=== PATIENT | male | born 1965 | race Hispanic/Latino ===

== ENCOUNTER → 2019-01-09 | Day surgery (SDC) | payer OTHER ==
[~2019-01-09] MED LIST: FENTANYL CITRATE/PF 100MCG/2 ML INJ ONE; FOLIC ACID1 MG PO; KALETRA 200-501 TAB PO; MIDAZOLAM HCL 2 MG/2 ML VIAL ONE; OR PHACO EYE KIT ONE; PREOP PHACO EYE KIT ONE; TRUVADA 200 MG1 EACH PO
--- OUTSIDE RECORDS SUMMARY | 2019-01-09 10:21 | XMS REPORT ---
Author Author [facility] Address Unknown Phone Unavailable Care Team Providers Care Sand Screener Operator Name Role Phone CHINMAY SHEARER Unavailable Unavailable Problems This patient has no known problems. Allergies, Adverse Reactions, Alerts This patient has no known allergies or adverse reactions. Medications This patient has no known medications. Results Test Description Test Time Test Comments Text Results Atomic Results Result Comments BONE MARROW EXAM 2018-01-04 10:46:00 Bone Marrow Pathology Report Case: [id number] Authorizing Provider: Chinmay Shearer MD Collected: Ordering Location: [facility] Radiology Main Received: 12/26/2017 0908 Pathologist: Oneil De La Paz MD Specimens: A) - Iliac Crest, Left B) - C) - This addendum is created to report the [facility] results for the Oncologic chromosomal study:There is no change to the original diagnosis.Oncologic Chromosomal Study is Normal.Please see attached scanned [facility] reports for details.Marie De La Paz MDAddendum electronically signed by Oneil De La Paz MD on 01/04/2018 at 10:46 AMBONE MARROW ASPIRATE, CLOT, AND DECALCIFIED BIOPSY:-EVALUATION LIMITED BY SUBOPTIMAL MARROW BIOPSY-BORDERLINE HYPOCELLULAR (35 %) MARROW FOR AGE DEMONSTRATED ON CLOT SECTION-TRILINEAGE HEMATOPOIESIS WITH ADEQUATE MATURATION -MILD MEGAKARYOCYTIC DYPOIESIS-NO EVIDENCE OF LYMPHOMA OR LEUKEMIA-NO EVIDENCE OF METASTATIC DISEASE OR MASS LESIONS-ONCOLOGIC CHROMOSOMAL STUDIES PENDING-SEE COMMENTPERIPHERAL BLOOD:-MILD LEUKOCYTOSIS WITH LEFT SHIFT AND FEW ATYPICAL LYMPHOCYTES Signing Pathologist Direct Phone Line: [phone] signed by Oneil De La Paz MD on 12/29/2017 at 3:53 PMBone marrow biopsy, aspirate, clot and peripheral blood evaluation was performed on samples obtained from a 52 year old man with history of thrombocytopenia of unknown duration. This evaluation is limited by suboptimal bone marrow biopsy. The bone marrow clot is borderline hypocellular(35%) for age. The M:E ratio is normal(2.1). There is no significant dyspoiesis in the erythroid or myeloid series. The megakaryocytes appear adequate to focally increased for cellularity with occasional dyspoietic forms. Given the mild degree in alteration of megakaryocytes, most likely secondary to a reactive condition, including autoimmune disease, infection, nutritional deficiency or medication/toxin effect. Less likely is the possibility of MDS. However, since the degree of morphologic dyspoiesis is not overt this diagnosis would require further corroborating evidence and a corresponding clinical history. Oncologic chromosomal analysis is pending for further evaluation and the results will be reported in an addendum. Flow cytometry performed on the corresponding bone marrow aspirate did NOT demonstrate evidence of an aberrant B or T lymphocyte process and no increase in blasts. Although plasma cells were slightly increased by aspirate differential count, flow cytometry demonstrated a polyclonal population. Clinical correlation is recommended. 48435; 60671; 96041 x 2; 17054; [id number] x 1; 64550 x4Fbguakmufbvaoevw A. Several aspirate smears to include one unstained slide for iron stain. B. Bone marrow aspirate. C. Bone marrow biopsy The specimen is received in three containers all labeled with the patient's name, medical record number and site.Specimen A: Received are several aspirate smears including one unstained slide for iron stain.Specimen B: Received in formalin is a 1.6 x 1.0 x 1.0 cm portion of clotted blood. The specimen is entirely submitted in cassette B1.Specimen C: Received in formalin is a 0.6 cm in length sharma-white core of osseous tissue, entirely submitted in cassette C1 for decalcification. DB/ew BONE MARROW ASPIRATE:QUALITY:Aspirate- AdequateTouch imprint- AdequateMARROW DIFFERENTIAL COUNT: Number of cells counted: 2001.00 % Blasts 3.50 % Promyelocytes 12.5 % Myelocytes/Metamyelocytes 31.0 % Bands/Segmented granulocytes 0.50 % Eosinophils and precursors 1.00 % Basophils and precursors 28.5 % Erythroid precursors 9.00 % Lymphocytes 10.5 % Monocytes2.50 % Plasma cellsMyeloid: Erythroid Ratio: 2.1 ; NormalBlasts: Not IncreasedErythropoiesis: Normal and complete maturation Myelopoiesis: Normal and complete maturationOther: Minimally Increased plasma cells. Increased monocytes Megakaryocytes: Present and appear normalStainable iron appears decreased based on an iron stain performed on the aspirate smear. There are no ringed sideroblasts identified. BONE MARROW BIOPSY:Biopsy- Suboptimal; absence of or minimal marrow due to aspiration artifact; crushed biopsy with increased clotClot- AdequateNormocellular ( 35 %)Cellular composition similar to aspirate smears and touch imprints. Normal proportions of myeloid and erythroid precursors present with complete maturation. Megakaryocytes are adequate to focally increased. Morphologic, are variable in size with occasional dyspoietic forms. Other: No mass lesions. Bony trabeculae: unremarkableStainable iron is decreased based on an iron stain performed on the clot section. The following immunohistochemical stains were evaluated on the clot section:CD3: Highlights few, dispersed T lymphocytes with no significant aggregates.CD20: Highlights few(<T cells), dispersed B lymphocytes with no significant aggregates.E-cadherin: Highlights erythroid precursors, which appear adequate to mildly increased for cellularity. CD61: Highlight adequatePERIPHERAL BLOOD:Quality: Suboptimal. Artifact created at time of collection as noted by Dr. Harrison. RBCs: Normochromic, macrocytic with no significant anisopoikilocytosis. WBCs: Mild leukocytosis, predominately comprised by granulocytes with left shift. No blasts identified, Few atypical lymphocytes present. Platelets: Normal number, Normal appearance, increased enlarged and giant forms. The following special studies were performed on this case and the interpretation is incorporated in the diagnostic report above:The immunohistochemistry test was developed and its performance characteristics determined by [facility], Pathology Laboratory. It has not been cleared or approved by the U.S. Food and Drug Administration. The FDA has determined that such clearance or approval is not necessary. The test is used for clinical purposes. It should not be regarded as investigational or for research. This laboratory is certified under the Clinical Laboratory Improvement Amendments of 1988 (CLIA-88) as qualified to perform high complexity clinical laboratory testing.The following immunohistochemical stains were evaluated on th e clot section:CD3, CD20, E-cadherin, CD61 FLOW CYTOMETRY REQUISITION 2017-12-27 13:06:00 FLOW CYTOMETRY RESULT POINTER (WHITNEY) (test dgok=4220) See Separate Report FLOW CYTOMETRY AP CASE # (WHITNEY) (test ntpw=8460) [id number] FLOW [id number] 10:48:00Flow Cytometry Report Case: [id number] Authorizing Provider: Chinmay Shearer MD Collected: 12/26/2017 0920 Ordering Location: [facility] Radiology Main Received: 12/26/2017 1008 Pathologist: Oneil De La Paz MD Specimen: Other BONE MARROW ASPIRATE, FLOW CYTOMETRY:- NO ABERRANT T LYMHOCYTE POPULATION-NO MONOTYPIC B LYMPHOCYTE POPULATION-NO INCREASED CD34 POSITIVE BLASTS-SEE COMMENT Flow cytometric evaluation of the bone marrow aspirate was essentially negative. There was no evidence of an aberrant B or T lymphocyte process. There was no increase in blasts. Please correlate with morphologic findings in the bone marrow biopsy report ([id number]).[id number] year old man with who presents for bone marrow biopsy for further evaluation of thrombocytopenia. Bone marrow aspirateCD8, surface-[place], CD56, surface-Lambda, CD5, CD19, CD10, CD3, CD20, CD4, CD45, CD14, CD13, CD33, CD117, CD34, cKappa, cLambda, CD38, WS713Brsrbwht Viability: 96.2% Number of Events Acquired: [id number] The following populations are identified: Blasts: the dim CD45+ CD34+ blasts comprise 0.4% of total cells. The majority of these cells express CD13 and CD33 (myeloblasts). Lymphocytes: Bright CD45+ lymphocytes comprise 3.2% of total cells. T cells show a CD4:CD8 ratio of 1.3 and normal expression of the barbosa T cell antigens CD3 and CD5. B cells are polytypic with a kappa:lambda ratio of 1.3. Myeloid/monocytic populations: As identified by CD45 and light scatter characteristics, granulocytes comprise the majority(63.0%) of cells analyzed, and monocytes comprise 2.0% of total cells. Plasma cells: 0.6% CD138 positive plasma cells are noted with polytypic cytoplasmic light chain express ion. The remaining events analyzed represent nonviable cells, non-hematolymphoid cells, and debris.These tests were developed and their performance characterist ics determined by [facility] They have not been cleared or approved by the U.S. Food and Drug Administration. The FDA has determined that such clearance or approval is not necessary. It should not be regarded as invest igational or for research. This laboratory is certified under the Clinical Labor atory Improvement Amendments of 1988 ("CLIA") as qualified to perform high-compl exity clinical testing.CT, BIOPSY, BONE [id number] 11:28:00Reason for Exam:->thrombocytopeniaFINAL REPORT CT guided bone marrow biopsy History: thrombocytopenia Comparison: No priors Modality: CT, CT fluoroscopy Anesthesia: 1% lidocaine local Approach: Right dorsal percutaneous Consent: Informed written consent was obtained from the patient. Sedation: Moderate sedation was administered, including a total of 2.0 mg of Versed and 100 mcg of fentanyl. Continuous monitoring was performed by the operating physician and radiology nursing throughout the procedure. Procedure time spent during conscious sedation: 20 minutes. Technique: The patient was placed in the prone position in the CT scanner. A safe window to the right iliac wing was localized using CT and CT fluoroscopy. This exam was performed according to our departmental dose optimization program which includes automated exposure control, adjustment of the mA and/or kV according to patient's size and/or use of iterative reconstructive technique. After the usual sterile preparation and application of local anesthesia, using a right dorsal percutaneous approach, a 10 cm 12 gauge [place] bone biopsy needle was advanced into the right iliac wing using CT guidance. Approximately 15 cc of marrow aspirates were obtained. Subsequently, a 1 cm core biopsy sample was obtained. The samples were collected by cytopathology for further analysis. Disposition: The patient tolerated the procedure well, without immediate complications. The patient left CT in stable condition. Impression: 1. Technically successful CT guided bone marrow biopsy Signed: Lynn Harrison Verified Date/Time: 12/26/2017 11:28:40 Reading Location: [address] Consult Reading Room MARROW PROCESS.2017-12-26 09:54:00* Test Item Value Reference Range Comments ANATOMIC CASE# (BECORAZON) (test oqst=9128) [id number] ORDERED BY DOCTOR# LÁZARO) (test wkdh=7859) Ajar PERFORMED BY DOCTOR# LÁZARO) (test ysqh=1383) Christy CLOT RECEIVED? (BEAKER) (test mzga=4198) Yes BIOPSY RECEIVED? (BEAKER) (test jzpi=7206) Yes CULTURE RECEIVED? (BEAKER) (test xtib=1324) No FLOW RECEIVED? (BEAKER) (test ugrm=4298) Yes CYTOGENICS? (BEAKER) (test ajdq=4905) Yes MOLECULAR GENETICS? (BEAKER) (test gxlp=9843) Hold Blood clot too fast upon collection by Dr Harrison. Slides not that [facility] W/PLT COUNT & AUTO [id number] 08:32:00* Test Item Value Reference Range Comments WHITE BLOOD CELL COUNT (BEAKER) (test ptfd=963) 11.6 K/ L 3.5-10.5 RED BLOOD CELL COUNT (BEAKER) (test uvlu=775) 4.62 M/ L 4.63-6.08 HEMOGLOBIN (BEAKER) (test qoad=404) 15.9 GM/DL 13.7-17.5 HEMATOCRIT (BEAKER) (test bbzz=674) 47.2 % 40.1-51.0 MEAN CORPUSCULAR VOLUME (BEAKER) (test mlhf=594) 102.2 fL 79.0-92.2 MEAN CORPUSCULAR HEMOGLOBIN (BEAKER) (test unzx=491) 34.4 pg 25.7-32.2 MEAN CORPUSCULAR HEMOGLOBIN CONC (BEAKER) (test mybs=228) 33.7 GM/DL 32.3-36.5 RED CELL DISTRIBUTION WIDTH (BEAKER) (test scwc=352) 11.7 % 11.6-14.4 PLATELET COUNT (BEAKER) (test hmws=220) 185 K/CU MM 150-450 MEAN PLATELET VOLUME (BEAKER) (test oenn=159) 11.0 fL 9.4-12.4 NUCLEATED RED BLOOD CELLS (BEAKER) (test kxym=527) 0 /100 WBC 0-0 (CELLAVISION MANUAL DIFF)2017-12-26 08:32:00* Test Item Value Reference Range Comments NEUTROPHILS - REL (CELLAVISION)(BEAKER) (test vqdb=6949) 65 % LYMPHOCYTES - REL (CELLAVISION)(BEAKER) (test zgrn=9096) 23 % MONOCYTES - REL (CELLAVISION)(BEAKER) (test wymj=0263) 7 % EOSINOPHILS - REL (CELLAVISION)(BEAKER) (test aehh=0693) 1 % METAMYELOCYTES - REL (CELLAVISION)(BEAKER) (test svhx=0628) 1 % 0-0 MYELOCYTES - REL (CELLAVISION)(BEAKER) (test prdk=5458) 2 % 0-0 ATYPICAL LYMPHOCYTES - REL (CELLAVISION)(BEAKER) (test irtk=7766) 1 % 0-0 NEUTROPHILS - ABS (CELLAVISION)(BEAKER) (test ygmb=6002) 7.54 K/ul 1.78-5.38 LYMPHOCYTES - ABS (CELLAVISION)(BEAKER) (test wvac=8908) 2.67 K/ul 1.32-3.57 MONOCYTES - ABS (CELLAVISION)(BEAKER) (test uwct=8345) 0.81 K/uL 0.30-0.82 EOSINOPHILS - ABS (CELLAVISION)(BEAKER) (test noww=3794) 0.12 K/uL 0.04-0.54 METAMYELOCYTES - ABS (CELLAVISION)(BEAKER) (test ezoe=0938) 0.12 K/uL 0.00-0.00 MYELOCYTES-ABS (CELLAVISION)(BEAKER) (test lcxn=0263) 0.23 K/uL 0.00-0.00 ATYPICAL LYMPHOCYTES - ABS (CELLAVISION)(BEAKER) (test eiwg=8858) 0.12 K/uL 0.00-0.00 TOTAL COUNTED (BEAKER) (test kyqu=4969) 100 RBC MORPHOLOGY (BEAKER) (test cepg=338) Normal SMUDGE CELLS (BEAKER) (test pctc=3467) Present GIANT PLATELETS (BEAKER) (test tbag=938) Present PLATELET CONCENTRATION (CELLAVISION)(BEAKER) (test dyuc=7551) Adequate Received comment: User comments: Slide comments: PT/[id number] 08:04:00* Test Item Value Reference Range Comments PROTIME (BEAKER) (test btlh=537) 12.5 seconds 11.7-14.7 INR (BEAKER) (test rbgz=093) 0.9 <=5.9 PARTIAL THROMBOPLASTIN TIME (BEAKER) (test gnnt=783) 26.6 seconds 22.5-36.0 RECOMMENDED COUMADIN/WARFARIN INR THERAPY RANGESSTANDARD DOSE: 2.0 - 3.0 Inclu bret: PROPHYLAXIS for venous thrombosis, systemic embolization; TREATMENT for indra ous thrombosis and/or pulmonary embolus.HIGH RISK: Target INR is 2.5-3.5 for pat ients with mechanical heart valves.
--- OUTSIDE RECORDS SUMMARY | 2019-01-09 10:21 | XMS REPORT ---
Author Author Eduardo Garvey [facility] [employer] Address Unknown Phone Unavailable Care Team Providers Care Life Coach Name Role Phone Eduardo Garvey CP Unavailable Allergies No Known Allergies Problems Problem Type Condition Code Onset Dates Condition Status Problem MOY positive R76.8 Active Problem Joint pain M25.50 Active Problem Vitamin D deficiency E55.9 Active Medications Medication Code System Code Instructions Start Date End Date Status Dosage Vitamin D (Ergocalciferol) [facility] [id number] 42056 UNIT Orally once a week Dec 15, 2017 Active 1 capsule Results No Known Results Summary Purpose [employer] Submission
--- OUTSIDE RECORDS SUMMARY | 2019-01-09 10:21 | XMS REPORT | Continuity of Care Document ---
Author Author [email or web address] [facility] [email or web address] Address Unknown Phone Unavailable Care Team Providers Care Product Promoter Retail Pet Name Role Phone [employer] Information [employer] Unavailable Unavailable Problems Problem Status Onset Date Classification Date Reported Comments Source MOY positive Active Problem 06/10/2018 José Christian Joint pain Active Problem 06/10/2018 José Christian Vitamin D deficiency Active Problem 06/10/2018 José Christian Knee pain, left Active Diagnosis 12/20/2017 José Christian Fatigue Active Diagnosis 12/20/2017 José Christian Knee pain, right Active Diagnosis 12/20/2017 José Christian Hand pain, left Active Diagnosis 12/20/2017 José Christian Hand pain, right Active Diagnosis 12/20/2017 José Christian Medications Medication Details Route Status Patient Instructions Ordering Provider Order Date Source Vitamin D (Ergocalciferol) 1 capsule Orally Active 19967 UNIT Orally once a week Mare 12/15/2017 José Christian Kaletra 2 tablets Orally Active 200-50 MG Orally Twice a day Mare José Christian Truvada 1 tablet Orally Active 200-300 MG Orally Once a day Mare José Christian Alive Energy 50+ as directed Orally Active - Orally Mare José Christian Allergies, Adverse Reactions, Alerts Substance Category Reaction Severity Reaction type Status Date Reported Comments Source N.K.D.A. Adverse Reaction Info Not Available Adverse Reaction Active 12/13/2017 José Christian Immunizations No Data Provided for This Section Results No Data Provided for This Section Pathology Reports No Data Provided for This Section Diagnostic Reports No Data Provided for This Section Consultation Notes No Data Provided for This Section Discharge Summaries No Data Provided for This Section History and Physicals No Data Provided for This Section Vital Signs Vital Sign Value Date Comments Source Weight 162 12/13/2017 José Christian Height 66 12/13/2017 José Christian Temperature Oral (F) 97.6 F 12/13/2017 José Christian Heart Rate 88 12/13/2017 José Christian Diastolic (mm Hg) 92 12/13/2017 José Christian Systolic (mm Hg) 140 12/13/2017 José Christian Encounters No Data Provided for This Section Procedures No Data Provided for This Section Assessment and Plan No Data Provided for This Section Plan of Care No Data Provided for This Section Social History No Data Provided for This Section Family History No Data Provided for This Section Advance Directives No Data Provided for This Section Functional Status No Data Provided for This Section
--- OUTSIDE RECORDS SUMMARY | 2019-01-09 10:21 | XMS REPORT | Clinical Summary ---
Author Author [facility] Address Unknown Phone Unavailable Care Team Providers Care Senior Mechanical Design Engineer Name Role Phone RosalbakarolPanfilo guy PCP Allergies No Known Allergies Medications End Date Status Medication Sig Dispensed Refills Start Date Active lopinavir-ritonavir Take 2 0 (KALETRA) 200-50 mg per tablets by tablet mouth 2 (two) times daily. Active emtricitabine-tenofovir, Take 1 tablet 0 TDF, (TRUVADA) 200-300 mg by mouth daily. Active ergocalciferol (VITAMIN Take 50,000 0 D2) 50,000 unit capsule Units by mouth once a week. Active Problems Not on file Social History Date Tobacco Use Types Packs/Day Years Used Never Assessed Sex Assigned at Date Recorded Not on file Industry Job Start Date Occupation Not on file Not on file Not on file Travel End Travel History Travel Start No recent travel history available. Last Filed Vital Signs Not on file Plan of Treatment Not on file Results Not on fileafter 01/08/2018 Insurance Payer Benefit Subscriber ID Type Phone Address Plan / Group [facility] xxxxxxxxxxxx HMO/POS [phone] [facility] CHOICE EXCHANGE
--- OUTSIDE RECORDS SUMMARY | 2019-01-09 10:21 | XMS REPORT ---
Author Author Eduardo Garvey [facility] [employer] Address Unknown Phone Unavailable Care Team Providers Care Sausage Cutter Name Role Phone Eduardo Garvey Unavailable Allergies, Adverse Reactions, Alerts Substance Reaction Event Type N.K.D.A. Info Not Available Non Drug Allergy Problems Problem Type Condition Code Onset Dates Condition Status Assessment Knee pain, left M25.562 Active Assessment Vitamin D deficiency E55.9 Active Assessment Fatigue R53.83 Active Assessment Knee pain, right M25.561 Active Problem MOY positive R76.8 Active Problem Joint pain M25.50 Active Problem Vitamin D deficiency E55.9 Active Assessment Hand pain, left M79.642 Active Assessment Hand pain, right M79.641 Active Assessment MOY positive R76.8 Active Assessment Joint pain M25.50 Active Medications Medication Code System Code Instructions Start Date End Date Status Dosage Kaletra [facility] 71352958327 200-50 MG Orally Twice a day Active 2 tablets Truvada [facility] 27319317458 200-300 MG Orally Once a day Active 1 tablet Alive Energy 50+ [facility] [id number] - Orally Active as directed Vital Signs Date/Time: Dec 13, 2017 BMI 26.14 Index Weight 162 lbs Height 66 in Temperature 97.6 F Cardiac Monitoring Heart Rate 88 /min Blood Pressure Diastolic 92 mm Hg Blood Pressure Systolic 140 mm Hg Results Name Result Date Reference Range Unit Abnormality Flag VITAMIN B12/FOLATE, SERUM PANEL ----VITAMIN B12 510 [id number] 200-1100 pg/mL N ----FOLATE, SERUM 14.2 79193493 ng/mL N SED RATE BY MODIFIED WESTERGREN ----SED RATE BY MODIFIED WESTERGREN 19 [id number] < OR=20 mm/h N C-REACTIVE PROTEIN ----C-REACTIVE PROTEIN 0.5 [id number] <8.0 mg/L N TSH, 3RD GENERATION W/REFLEX TO FT4 ----TSH W/REFLEX TO FT4 0.84 [id number] 0.40-4.50 mIU/L N CREATINE KINASE, TOTAL ----CREATINE KINASE, TOTAL 92 20171213 44-196 U/L N VITAMIN D, 25-HYDROXY, LC/MS/MS ----VITAMIN D, 25-OH, TOTAL 18 20171213 30-100 ng/mL L Summary Purpose eClinicalWorks Submission
--- OUTSIDE RECORDS SUMMARY | 2019-01-09 10:21 | XMS REPORT ---
Author Author Harpreet Christian Organization [employer] Address Unknown Phone Unavailable Care Team Providers Care Ship Engineer Name Role Phone Harpreet Christian CP Unavailable Allergies No Known Allergies Problems Problem Type Condition Code Onset Dates Condition Status Problem MOY positive R76.8 Active Problem Joint pain M25.50 Active Problem Vitamin D deficiency E55.9 Active Medications No Known Medications Results No Known Results Summary Purpose eClinicalWorks Submission
--- OUTSIDE RECORDS SUMMARY | 2019-01-09 10:22 | XMS REPORT ---
Author Author Admin, [place] Organization [facility] [place] [place] Adult Medicine Address [address] [address] Phone Allergies, Adverse Reactions, Alerts Allergy Name Reaction Description Start Date Severity Status Provider No Known Allergies Mariano Hurley GUN PROFILER Conditions or Problems Problem Name Problem Code Onset Date Status Entry Date Provider Comment Standard Description Annotate VENTRAL HERNIA 553.20 02/16 Active Tara Julian Unspecified ventral hernia without mention of obstruction or gangrene Preoperative exam V72.84 Active Panfilo Dunaway MD Preoperative examination, unspecified Skin lesion 709.9 Active Panfilo Dunaway MD Unspecified disorder of skin and subcutaneous tissue Fatigue 780.79 Active Panfilo Dunaway MD Other malaise and fatigue Preventive health care V70.0 Active Panfilo Dunaway MD Routine general medical examination at a health care facility Screening for std V74.5 Active Panfilo Dunaway MD Screening examination for venereal disease Screening, colon cancer V76.51 Active Panfilo Dunaway MD Screening for malignant neoplasms of colon 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 Active Panfilo Dunaway MD Varicose veins of the lower extremities, with other complications Ptosis 374.30 Active Napoleon Mauro MD Ptosis of eyelid, unspecified OTHER SPECIFIED DISORDER OF MALE GENITAL ORGANS 608.89 Active Panfilo Dunaway MD Other specified disorders of male genital organs painful ejaculation ANAL OR RECTAL PAIN 569.42 Active Panfilo Dunaway MD Anal or rectal pain 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 Panfilo Dunaway MD Wilson's palsy Also in 2005 FATTY LIVER DISEASE 571.8 2009 Active Tara Julian Other chronic nonalcoholic liver disease HIV INFECTION/AIDS 042 1998 Active Panfilo Dunaway MD Human immunodeficiency virus [HIV] disease 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 Panfilo Dunaway MD Obstructive hydrocephalus s/p V-P shunt HYPERLIPIDEMIA 272.4 2011 Active Panfilo Dunaway MD Other and unspecified hyperlipidemia 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 Active Panfilo Dunaway MD Nonspecific reaction to tuberculin skin test without active tuberculosis POSITIVE PPD 795.5 2007 Correction Tara Julian Nonspecific reaction to test for tuberculosis VITREOUS FLOATERS 379.24 Inactive Panfilo Dunaway MD Other vitreous opacities VITREOUS FLOATERS ICD-379.24 Inactive Panfilo Dunaway MD Presbyopia - OU 367.4 Inactive Panfilo Dunaway MD Presbyopia Presbyopia - OU ICD-367.4 Inactive Panfilo Dunaway MD Screening examination for other specified viral diseases V73.89 Inactive Napoleon Mauro MD Screening examination for other specified viral diseases Screening examination for other specified viral diseases ICD-V73.89 Inactive Napoleon Mauro MD ASTIGMATISM 367.20 Inactive Panfilo Dunaway MD Astigmatism, unspecified ASTIGMATISM ICD-367.20 Inactive Panfilo Dunaway MD MYOPIA 367.1 Inactive Panfilo Dunaway MD Myopia MYOPIA 367.1 Inactive Panfilo Dunaway MD Myopia MYOPIA ICD-367.1 Inactive Panfilo Dunaway MD PRESBYOPIA 367.4 Inactive Panfilo Dunaway MD Presbyopia PRESBYOPIA ICD-367.4 Inactive Panfilo Dunaway MD Medication List Medication Instructions Start Date Stop Date Generic Name NDC Status Provider Patient Instruction KALETRA 200-50 MG ORAL TABLET 2 By Mouth two times a day LOPINAVIR-RITONAVIR 78682000950 Active Kena Oconnor [facility] Active TRUVADA 200-300 MG ORAL TABLET 1 by mouth daily EMTRICITABINE-TENOFOVIR 17664330820 Active Panfilo Dunaway MD Active ANALPRAM-HC 1-1 % RECTAL CREAM Apply Twice a Day to anal area as needed ANALPRAM-HC 1-1 % RECTAL CREAM 6520291 HYDROCORTISONE ADIS-PRAMOXINE Inactive ANALPRAM-HC 1-1 % RECTAL CREAM Apply Twice a Day to anal area as needed HYDROCORTISONE ADIS-PRAMOXINE 15832470103 No Longer Active Panfilo Dunaway MD Active Advance Directives Directive Description Start Date DISCUSSED - NO DECISION MADE Immunizations Vaccine Administration Date Value Standard Description influenza immunization (Flu Vax) has been administered given influenza virus vaccine, unspecified formulation influenza immunization (Flu Vax) has been administered given influenza virus vaccine, unspecified formulation influenza immunization (Flu Vax) has been administered given influenza virus vaccine, unspecified formulation influenza immunization (Flu Vax) has been administered given influenza virus vaccine, unspecified formulation influenza immunization (Flu Vax) has been administered given influenza virus vaccine, unspecified formulation PEDIATRIC PNEUMOCOCCAL VACCINE ([id number]) #1 given pneumococcal conjugate vaccine, 13 valent influenza immunization (Flu Vax) has been administered given influenza virus vaccine, unspecified formulation pneumococcal immunization administered given pneumococcal polysaccharide vaccine, 23 valent influenza immunization (Flu Vax) has been administered given influenza virus vaccine, unspecified formulation influenza immunization (Flu Vax) has been administered transcribed from official record influenza virus vaccine, unspecified formulation influenza immunization (Flu Vax) has been administered transcribed from official record influenza virus vaccine, unspecified formulation hepatitis B vaccine #1 given transcribed from official record hepatitis B vaccine, unspecified formulation influenza immunization (Flu Vax) has been administered transcribed from official record influenza virus vaccine, unspecified formulation hepatitis B vaccine #1 given transcribed from official record hepatitis B vaccine, unspecified formulation hepatitis B vaccine #1 given transcribed from official record hepatitis B vaccine, unspecified formulation pneumococcal immunization administered transcribed from official record pneumococcal polysaccharide vaccine, 23 valent dT (Diphtheria and Tetanus) immunization for children, #1 transcribed from official record Td(adult) unspecified formulation Vital Signs Date Name Value Unit Range Description blood pressure, diastolic 88 mm[Hg] BP durham blood pressure, systolic 132 mm[Hg] BP sys height E&M 66 [in_us] Bdy height pulse rate E&M 63 /min Heart rate respiratory rate E&M 12 /min Resp rate temperature E&M 97.8 [degF] Body temperature weight E&M 170 [lb_av] Weight Measured blood pressure, diastolic 89 mm[Hg] BP durham blood pressure, systolic 137 mm[Hg] BP sys height E&M 66 [in_us] Bdy height pulse rate E&M 77 /min Heart rate respiratory rate E&M 12 /min Resp rate temperature E&M 97.9 [degF] Body temperature weight E&M 171.38 [lb_av] Weight Measured blood pressure, diastolic 85 mm[Hg] BP durham blood pressure, systolic 126 mm[Hg] BP sys height E&M 66 [in_us] Bdy height pulse rate E&M 93 /min Heart rate respiratory rate E&M 16 /min Resp rate temperature E&M 98.1 [degF] Body temperature weight E&M 169 [lb_av] Weight Measured blood pressure, diastolic 91 mm[Hg] BP durham blood pressure, systolic 142 mm[Hg] BP sys height E&M 66 [in_us] Bdy height pulse rate E&M 112 /min Heart rate temperature E&M 98.1 [degF] Body temperature weight E&M 164.80 [lb_av] Weight Measured Diagnostic Results Date Name Value Unit Range Description Lab Report: CD4/CD8 Ratio Profile, Comp. Metabolic Panel (14), Lipid Barba ... - Chemistry thyroid stimulating hormone, serum 1.360 u[iU]/mL 0.450-4.500 Lab Report: Anal(Rectal) Cytology, LBP - Chemistry source ANAL Lab Report: CD4/CD8 Ratio Profile, Comp. Metabolic Panel (14), Lipid Barba ... - Hematology T-helper cells (CD4) to T-suppressor cells (CD8) ratio 28.0 % 12.0-35.5 Lab Report: Lipid Panel - Chemistry very low density lipoproteins 33 mg/dL 5-40 Lab Report: LIPID PANEL, HDL CHOLESTEROL, TRIGLYCERIDES, LDL-CHOLESTEROL ... - Chemistry cholesterol, non-HDL, total 165 MG/DL (CALC) mg/dL Preload: Preload [facility] 06/27/12 - Chemistry hepatitis B surface antigen Non-reactive Lab Report: HIV 1 RNA, QUANTITATIVE REAL TIME PCR - Chemistry HIV-1 RNA (log 10) <1.30 NOT DETECTED Log copies/mL <1.30 Lab Report: CD4/CD8 Ratio Profile, Comp. Metabolic Panel (14), RNA, Real ... - Chemistry chloride, serum 101 mmol/L 96-106 Preload: Preload [facility] 06/27/12 - Microbiology hepatitis A antibody, total Reactive Lab Report: CD4/CD8 Ratio Profile, Comp. Metabolic Panel (14), RNA, Real ... - Chemistry urea nitrogen, blood 13 mg/dL 6-24 Lab Report: LIPID PANEL, HDL CHOLESTEROL, TRIGLYCERIDES, LDL-CHOLESTEROL ... - Hematology Absolute Eosinophil count 84 {Cells}/uL 15-500 Office Visit: Adult Followup #TR2 - Serology human leukocyte antigen B57 negative Lab Report: CBC With Differential/Platelet - Hematology mean corpuscular hemoglobin concentration, RBC 34.2 G/DL % 31.5-35.7 erythrocyte (RBC) count 4.88 X10E6/UL 10*6/mm3 4.14-5.80 Lab Report: LIPID PANEL, HDL CHOLESTEROL, TRIGLYCERIDES, LDL-CHOLESTEROL ... - Chemistry cholesterol/HDL ratio, serum, percent 4.2 (calc) < OR=5.0 Lab Report: CD4/CD8 Ratio Profile, Comp. Metabolic Panel (14), Lipid Barba ... - Serology hepatitis C antibody, serum <0.1 0.0-0.9 Lab Report: CD4/CD8 Ratio Profile, Comp. Metabolic Panel (14), RNA, Real ... - Chemistry absolute CD8 528 109-897 Lab Report: CBC With Differential/Platelet - Chemistry Absolute Neutrophils 2.7 X10E3/UL 10*3/uL 1.4-7.0 Lab Report: LIPID PANEL, HDL CHOLESTEROL, TRIGLYCERIDES, LDL-CHOLESTEROL ... - Hematology mean platelet volume 11.2 fL 7.5-11.5 Lab Report: Lipid Panel - Chemistry LDL cholesterol, serum 111 mg/dL 0-99 Lab Report: CD4/CD8 Ratio Profile, Comp. Metabolic Panel (14), RNA, Real ... - Chemistry urea nitrogen/creatinine ratio, serum 22 9-20 Lab Report: CBC With Differential/Platelet - Hematology mean corpuscular volume, RBC 98 fL 79-97 Internal Correspondence: Pre-Visit Planning:f/u 09/15/15@3:30pm-confirmed - CC care team driver #1, name [facility] [place] [place] AM-B Louis Khalil MD, Panfilo Dunaway MD, Steve Daly NP-C, GLORY Dockery-Kera, Lynn Méndez MA, Gavi Dunn MA, Starr Guan MA, Saran Lion MA, Karis Gray, KRISHNA Lab Report: Lipid Panel - Chemistry HDL cholesterol, serum 48 mg/dL >39 Lab Report: CBC With Differential/Platelet - Hematology monocytes as percent of blood leukocytes 11 % Not Estab. Lab Report: CD4/CD8 Ratio Profile, Comp. Metabolic Panel (14), RNA, Real ... - Chemistry albumin/globulin ratio, serum 1.8 1.2-2.2 creatinine, serum 0.58 mg/dL 0.76-1.27 Lab Report: LIPID PANEL, HDL CHOLESTEROL, TRIGLYCERIDES, LDL-CHOLESTEROL ... - Hematology Absolute Monocyte count 692 {Cells}/uL 200-950 Lab Report: Lipid Panel - Chemistry cholesterol, serum 192 mg/dL 100-199 Lab Report: CD4/CD8 Ratio Profile, Comp. Metabolic Panel (14), RNA, Real ... - Chemistry bilirubin, serum, total 0.6 mg/dL 0.0-1.2 Lab Report: CBC With Differential/Platelet - Hematology Eosinophil Absolute Count 0.1 X10E3/UL 10*3/uL 0.0-0.4 Lab Report: Chlamydia/GC Amplification - Lab chlamydia DNA probe Negative Negative Lab Report: CD4/CD8 Ratio Profile, Comp. Metabolic Panel (14), RNA, Real ... - Chemistry aspartate aminotransferase (SGOT), serum 16 U/L 0-40 Lab Report: CBC With Differential/Platelet - Hematology red blood cell distribution width 12.7 % 12.3-15.4 Lab Report: LIPID PANEL, HDL CHOLESTEROL, TRIGLYCERIDES, LDL-CHOLESTEROL ... - Chemistry globulins, serum, total 2.8 G/DL (CALC) g/dL 1.9-3.7 Lab Report: CBC With Differential/Platelet - Hematology leukocyte count, blood 5.8 X10E3/UL 10*3/mm3 3.4-10.8 Lab Report: CD4/CD8 Ratio Profile, Comp. Metabolic Panel (14), RNA, Real ... - Chemistry potassium, serum 4.4 mmol/L 3.5-5.2 Lab Report: CBC With Differential/Platelet - Chemistry immature granulocytes, percentage of total cells, blood 1 % Not Estab. Lab Report: CD4/CD8 Ratio Profile, Comp. Metabolic Panel (14), RNA, Real ... - Chemistry albumin, serum 4.7 g/dL 3.5-5.5 Lab Report: CBC With Differential/Platelet - Hematology lymphocyte count, blood, automated 2.3 X10E3/UL 10*3/mm3 0.7-3.1 hematocrit, blood 48.0 % 37.5-51.0 Lab Report: Chlamydia/GC Amplification - Microbiology Neisseria gonorrhoeae DNA probe Negative Negative Lab Report: CD4/CD8 Ratio Profile, Comp. Metabolic Panel (14), RNA, Real ... - Chemistry sodium, serum 139 mmol/L 134-144 Preload: Preload [facility] 06/27/12 - Serology toxoplasma gondii antibody, IgG None-detected Lab Report: CBC With Differential/Platelet - Hematology neutrophils as percent of blood leukocytes 47 % Not Estab. Office Visit: hemroids x2 weeks/Tx 2 - Chemistry occult blood, stool (E&M) guaiac negative Lab Report: CBC With Differential/Platelet - Hematology basophils as percent of blood leukocytes 0 % Not Estab. Internal Correspondence: Pre-Visit Planning:=Ben 05/28/14@ 2:30pm CONFIRMED - Other List of providers caring for patient Mariola Boyce MD, Panfilo Dunaway MD, Yvonne Marino MD, Leonela Rodriguez LOADING MANAGER, Sheldon Gomez LOADING MANAGER, Steve Daly SOLAR WATER HEATER INSTALLER-C, Briana Gonsales MA, Dereck Hector M.A. ,, Lynn Méndez MA, Mindy Lambert MA, Nina Penaloza MA, Kerwin Serrano MA, Danny Flores MA, Katarina Martino CTA, Belkis Qiu CTA. Lab Report: CD4/CD8 Ratio Profile, Comp. Metabolic Panel (14), RNA, Real ... - Serology HIV-1RNA, serum, by PCR, quantitative <20 copies/mL {Copies}/mL Preload: Preload [facility] 06/27/12 - Chemistry anion gap, serum 20 Lab Report: CD4/CD8 Ratio Profile, Comp. Metabolic Panel (14), RNA, Real ... - Serology rapid plasma reagin antibody, serum Non Reactive Non Reactive Lab Report: CD4/CD8 Ratio Profile, Comp. Metabolic Panel (14), RNA, Real ... - Chemistry CD4/CD8 ratio 1.55 0.92-3.72 carbon dioxide, venous blood 22 mmol/L 20-29 Lab Report: LIPID PANEL, HDL CHOLESTEROL, TRIGLYCERIDES, LDL-CHOLESTEROL ... - Chemistry Absolute Neutrophil count 4286 {Cells}/uL 7807-6037 Lab Report: Lipid Panel - Chemistry triglyceride, serum, fasting 167 mg/dL 0-149 Lab Report: CD4/CD8 Ratio Profile, Comp. Metabolic Panel (14), RNA, Real ... - Chemistry calcium, serum 9.5 mg/dL 8.7-10.2 alanine aminotransferase (SGPT), serum 21 U/L 0-44 Lab Report: CBC With Differential/Platelet - Hematology mean corpuscular hemoglobin, RBC 33.6 pg 26.6-33.0 Lab Report: CD4/CD8 Ratio Profile, Comp. Metabolic Panel (14), RNA, Real ... - Chemistry protein, total, serum 7.3 g/dL 6.0-8.5 alkaline phosphatase, serum 141 U/L 39-117 Lab Report: CD4/CD8 Ratio Profile, Comp. Metabolic Panel (14), RNA, Real ... - Hematology T-helper cells (CD4) as percent of blood lymphocytes 43.1 % 30.8-58.5 Lab Report: CBC With Differential/Platelet - Hematology hemoglobin, blood 16.4 g/dL 13.0-17.7 Lab Report: CD4/CD8 Ratio Profile, Comp. Metabolic Panel (14), RNA, Real ... - Hematology T-suppressor cells (CD8) as percent of blood lymphocytes 27.8 % 12.0-35.5 Lab Report: CBC With Differential/Platelet - Hematology lymphocytes as percent of blood leukocytes 39 % Not Estab. Lab Report: LIPID PANEL, HDL CHOLESTEROL, TRIGLYCERIDES, LDL-CHOLESTEROL ... - Hematology eosinophils as percent of blood leukocytes 1.1 % Lab Report: CD4/CD8 Ratio Profile, Comp. Metabolic Panel (14), RNA, Real ... - Genetics/fertility eGFR if 136 mL/min/1.73m2 >59 Lab Report: CBC With Differential/Platelet - Hematology basophil count, absolute 0.0 x10E3/uL 0.0-0.2 Lab Report: Ct/GC VARGAS, Rectal - Basic GC Rectum Negative Negative Lab Report: CD4/CD8 Ratio Profile, Comp. Metabolic Panel (14), RNA, Real ... - Chemistry globulin, serum 2.6 1.5-4.5 Lab Report: HCV RNA by PCR, Qn Rfx Diana - Serology hepatitis C virus, RNA, quantitative <43 IU/mL [iU]/mL Lab Report: CD4/CD8 Ratio Profile, Comp. Metabolic Panel (14), RNA, Real ... - Chemistry Estimated Glomerular Filtration Rate (calc) 117 mL/min/1.73m2 >59 Lab Report: LIPID PANEL, HDL CHOLESTEROL, TRIGLYCERIDES, LDL-CHOLESTEROL ... - Chemistry lymphocytes, absolute 2493 CELLS/UL 10*3/uL 850-3900 Preload: Preload [facility] 06/27/12 - Serology hepatitis B surface antibody Reactive Lab Report: CBC With Differential/Platelet - Hematology eosinophils as percent of blood leukocytes 2 % Not Estab. Lab Report: CD4/CD8 Ratio Profile, Comp. Metabolic Panel (14), RNA, Real ... - Chemistry blood glucose, random 89 mg/dL 65-99 Lab Report: CD4/CD8 Ratio Profile, Comp. Metabolic Panel (14), Lipid Barba ... - Chemistry prostate specific antigen 0.4 ng/mL 0.0-4.0 estimated glomerular filtration rate >59 mL/min/1.73 mL/min >59 Lab Report: CBC With Differential/Platelet - Hematology monocyte count, blood, automated 0.6 X10E3/UL 10*3/uL 0.1-0.9 Lab Report: CD4/CD8 Ratio Profile, Comp. Metabolic Panel (14), RNA, Real ... - Hematology T-helper cells (CD4) count 819 /UL uL 359-1519 Lab Report: CBC With Differential/Platelet - Hematology platelet count 180 X10E3/UL 10*3/mm3 150-450 Encounters Date Encounter Provider Code Facility 08:16:17 CDT Ofc Vst, Est Level IV Panfilo Dunaway MD [facility]42039 [facility] [place] [place] Adult Medicine 09:18:10 CDT Ofc Vst, Est Level III Panfilo Dunaway MD [facility]26939 [facility] [place] [place] Adult [facility] 14:21:11 CDT Ofc Vst, Est Level IV Panfilo Dunaway MD [facility]56149 [facility] 15:21:54 TELECASTING ENGINEER Ofc Vst, Est Level IV Panfilo Dunaway MD [facility]87465 [facility] 15:16:34 CDT Ofc Vst, Est Level IV Panfilo Dunaway MD [facility]32573 [facility] 13:52:54 TELECASTING ENGINEER Ofc Vst, Est Level IV Panfilo Dunaway MD [facility]12872 [facility] [place] [place] Adult [facility] 14:35:40 CDT Ofc Vst, Est Level IV Panfilo Dunaway MD [facility]14889 [facility] 15:45:00 CDT Ofc Vst, Est Level IV Panfilo Dunaway MD [id number] [facility] [place] [place] Adult [facility] 14:50:02 TELECASTING ENGINEER Ofc Vst, Est Level IV Panfilo Dunaway MD [facility]24234 [facility] Medicine 14:10:11 CDT Ofc Vst, Est Level IV Panfilo Dunaway MD [facility]10569 [facility] [place] [place] Adult [facility] 15:24:15 CDT Ofc Vst, Est Level IV Panfilo Dunaway MD [facility]99075 [facility] 14:07:24 TELECASTING ENGINEER Ofc Vst, Est Level IV Panfilo Dunaway MD [facility]23003 [facility] [place] [place] Adult [facility] 16:04:17 CDT Ofc Vst, Est Level IV Panfilo Dunaway MD [facility]10825 [facility] [place] [place] [facility] 15:12:55 CDT Ofc Vst, Est Level III Panfilo Dunaway MD CPT-07607 [facility] [place] [place] [facility] 14:56:59 TELECASTING ENGINEER Ofc Vst, Est Level IV Panfilo Dunaway MD [facility]-[id number] [facility] [place] [place] [facility] 14:32:42 CDT Ofc Vst, Est Level III Panfilo Dunaway MD [facility]-[id number] [facility] [place] [place] [facility] 14:04:59 CDT Ofc Vst, Est Level III Panfilo Dunaway MD [facility]-[id number] [facility] [place] [place] [facility] 08:56:18 CDT Ofc Vst, Est Level III Panfilo Dunaway MD CPT-69408 [facility] [place] [place] [facility] 13:58:14 CDT Ofc Vst, Est Level III Panfilo Dunaway MD [facility]-[id number] [facility] [place] [place] [facility] 09:13:47 TELECASTING ENGINEER Ofc Vst, Est Level III Panfilo Dunaway MD [facility]-[id number] [facility] [place] [place] [facility] 14:42:13 CDT Ofc Vst, Est Level IV Panfilo Dunaway MD [facility]-[id number] [facility] [place] [place] [facility] 14:23:43 TELECASTING ENGINEER Ofc Vst, Est Level IV Panfilo Dunaway MD [facility]-[id number] [facility] [place] [place] [facility] 16:03:37 TELECASTING ENGINEER Ofc Vst, Est Level IV Panfilo Dunaway MD [facility]-[id number] [facility] [place] [place] Adult [facility] Procedures Code Procedure Name Date Entry Date Standard Description CPT-93478 EKG - 12 Leads with Interpretation and Report 08:10:37 CDT CPT-29040 Xray - Chest - 2 Views - InHouse 15:19:00 CDT CPT-91418 Fluzone 0.5 ml (Influenza Vacc 3 years plus IM) 15:08:02 TELECASTING ENGINEER CPT-29637 Dispensing Visit (UNLIVSTED OPHTHALMOLOGICAL SERVICE/PROCEDURE) 15:04:15 CDT CPT-35932 Est Patient Comprehensive Opt - [id number] 15:25:20 CDT CPT-55664 Est Patient Intermediate Opt - [id number] 15:33:01 CDT CPT-32438 Xray - Chest - PA & Lat - InHouse 14:23:14 TELECASTING ENGINEER CPT-16929 INFLUENZA VACCINE QUADRIVALENT 3 YRS PLUS IM 14:22:37 CDT CPT-54688 Xray - Chest - PA & Lat - InHouse 14:48:56 CDT CPT-57138 INFLUENZA VACCINE QUADRIVALENT 3 YRS PLUS IM 14:03:11 CDT CPT-09941 Est Patient Intermediate [facility] - 61089 15:57:07 CDT CPT-58441 Est Patient Intermediate Opt - 63318 15:03:24 CDT CPT-84115 Influenza - Adult - Injection 13:59:33 TELECASTING ENGINEER CPT-98931 Xray - Chest - PA & Lat - InHouse 16:06:46 CDT CPT-15649 Est Patient Intermediate [facility] - 32197 12:30:16 CDT CPT-92255 Influenza - Adult - Injection 14:29:42 CDT CPT-J0696 Rocephin 250 mg 08:55:48 CDT CPT-Q0144 Azithromycin, oral, 1 g 08:55:48 CDT CPT-87416 Xray - Chest - PA & Lat - InHouse 14:28:14 CDT CPT-33790 Prevnar (PCV13) IM 13:54:10 CDT CPT-47659 Xray - Chest - PA & Lat - InHouse 18:10:06 TELECASTING ENGINEER CPT-92330 Pneumovax Vaccine 14:20:13 TELECASTING ENGINEER CPT-40696 Influenza - Adult - Injection 16:01:37 TELECASTING ENGINEER
[2019-01-09 14:20] VITALS: BP 109/70
== END | disposition home or self-care (01) ==
LOC: OR 10:15
PROVIDERS: ATTEND Ophthalmology
DX: H25.11 Age-related nuclear cataract, right eye (principal); I10 Essential (primary) hypertension; Z21 Asymptomatic human immunodeficiency virus [HIV] infection status; Z98.2 Presence of cerebrospinal fluid drainage device
CPT/HCPCS: 66984; J2250; J3010; V2632

== ENCOUNTER → 2019-01-23 | Day surgery (SDC) | payer OTHER ==
[~2019-01-23] MED LIST changes: -OR PHACO EYE KIT ONE; -PREOP PHACO EYE KIT ONE
--- OUTSIDE RECORDS SUMMARY | 2019-01-23 12:41 | XMS REPORT ---
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 TRUVADA 200-300 MG ORAL TABLET 1 by mouth daily EMTRICITABINE-TENOFOVIR 77819730331 Active Shreya Valdez [employer]herence, health and physical education professor Active ANALPRAM-HC 1-1 % RECTAL CREAM Apply Twice a Day to anal area as needed ANALPRAM-HC 1-1 % RECTAL CREAM 6231911 HYDROCORTISONE ADIS-PRAMOXINE Inactive ANALPRAM-HC 1-1 % RECTAL CREAM Apply Twice a Day to anal area as needed HYDROCORTISONE ADIS-PRAMOXINE 53597595306 No Longer Active Panfilo Dunaway MD Active [...] virus vaccine, unspecified formulation PEDIATRIC PNEUMOCOCCAL VACCINE ([id number]) #1 given pneumococcal conjugate vaccine, 13 valent [...] (CD8) ratio 28.0 % 12.0-35.5 Lab Report: CD4/CD8 Ratio Profile, Comp. Metabolic Panel (14), Lipid Barba ... - Chemistry very low density lipoproteins 31 mg/dL 5-40 Lab Report: LIPID PANEL, HDL CHOLESTEROL, TRIGLYCERIDES, LDL-CHOLESTEROL ... - Chemistry cholesterol, non-HDL, total 165 MG/DL (CALC) mg/dL Preload: P[facility] 06/27/12 - Chemistry hepatitis B surface antigen Non-reactive Lab Report: HIV 1 RNA, QUANTITATIVE REAL TIME PCR - Chemistry HIV-1 RNA (log 10) <1.30 NOT DETECTED Log copies/mL <1.30 Lab Report: CD4/CD8 Ratio Profile, Comp. Metabolic Panel (14), Lipid Barba ... - Chemistry chloride, serum 102 mmol/L 96-106 Preload: P[facility] 06/27/12 - Microbiology hepatitis A antibody, total Reactive Lab Report: CD4/CD8 Ratio Profile, Comp. Metabolic Panel (14), Lipid Barba ... - Chemistry urea nitrogen, blood 13 mg/dL 6-24 Lab Report: LIPID PANEL, HDL CHOLESTEROL, TRIGLYCERIDES, LDL-CHOLESTEROL ... - Hematology Absolute Eosinophil count 84 {Cells}/uL 15-500 Office Visit: Adult Followup #TR2 - Serology human leukocyte antigen B57 negative Lab Report: CD4/CD8 Ratio Profile, Comp. Metabolic Panel (14), Lipid Barba ... - Hematology mean corpuscular hemoglobin concentration, RBC 33.1 G/DL % 31.5-35.7 erythrocyte (RBC) count 4.83 X10E6/UL 10*6/mm3 4.14-5.80 Lab Report: LIPID PANEL, HDL CHOLESTEROL, TRIGLYCERIDES, LDL-CHOLESTEROL ... - Chemistry cholesterol/HDL ratio, serum, percent 4.2 (calc) < OR=5.0 Lab Report: CD4/CD8 Ratio Profile, Comp. Metabolic Panel (14), Lipid Barba ... - Serology hepatitis C antibody, serum <0.1 0.0-0.9 Lab Report: CD4/CD8 Ratio Profile, Comp. Metabolic Panel (14), Lipid Barba ... - Chemistry absolute CD8 601 348-726 2567/09/09 Absolute Neutrophils 2.6 X10E3/UL 10*3/uL 1.4-7.0 Lab Report: LIPID PANEL, HDL CHOLESTEROL, TRIGLYCERIDES, LDL-CHOLESTEROL ... - Hematology mean platelet volume 11.2 fL 7.5-11.5 Lab Report: CD4/CD8 Ratio Profile, Comp. Metabolic Panel (14), Lipid Barba ... - Chemistry LDL cholesterol, serum 110 mg/dL 0-99 urea nitrogen/creatinine ratio, serum 20 9-20 Lab Report: CD4/CD8 Ratio Profile, Comp. Metabolic Panel (14), Lipid Barba ... - Hematology mean corpuscular volume, RBC 98 fL 79-97 Internal Correspondence: Pre-Visit Planning:f/u 09/15/15@3:30pm-confirmed - CC care team assistant #1, name [facility] Louis Khalil MD, Panfilo Dunaway MD, Steve Daly NP-C, Matt uNno, GLORY-C, Lynn Méndez MA, Gavi Dunn MA, Starr Guan MA, Saran Lion MA, Karis Gray, CTA Lab Report: CD4/CD8 Ratio Profile, Comp. Metabolic Panel (14), Lipid Barba ... - Chemistry HDL cholesterol, serum 44 mg/dL >39 Lab Report: CD4/CD8 Ratio Profile, Comp. Metabolic Panel (14), Lipid Barba ... - Hematology monocytes as percent of blood leukocytes 8 % Not Estab. Lab Report: CD4/CD8 Ratio Profile, Comp. Metabolic Panel (14), Lipid Barba ... - Chemistry albumin/globulin ratio, serum 1.6 1.2-2.2 creatinine, serum 0.64 mg/dL 0.76-1.27 Lab Report: LIPID PANEL, HDL CHOLESTEROL, TRIGLYCERIDES, LDL-CHOLESTEROL ... - Hematology Absolute Monocyte count 692 {Cells}/uL 200-950 Lab Report: CD4/CD8 Ratio Profile, Comp. Metabolic Panel (14), Lipid Barba ... - Chemistry cholesterol, serum 185 mg/dL 869-070 9462/09/09 bilirubin, serum, total 0.6 mg/dL 0.0-1.2 Lab Report: CD4/CD8 Ratio Profile, Comp. Metabolic Panel (14), Lipid Barba ... - Hematology Eosinophil Absolute Count 0.1 X10E3/UL 10*3/uL 0.0-0.4 Lab Report: Chlamydia/GC Amplification - Lab chlamydia DNA probe Negative Negative Lab Report: CD4/CD8 Ratio Profile, Comp. Metabolic Panel (14), Lipid Barba ... - Chemistry aspartate aminotransferase (SGOT), serum 21 U/L 0-40 Lab Report: CD4/CD8 Ratio Profile, Comp. Metabolic Panel (14), Lipid Barba ... - Hematology red blood cell distribution width 12.6 % 12.3-15.4 Lab Report: LIPID PANEL, HDL CHOLESTEROL, TRIGLYCERIDES, LDL-CHOLESTEROL ... - Chemistry globulins, serum, total 2.8 G/DL (CALC) g/dL 1.9-3.7 Lab Report: CD4/CD8 Ratio Profile, Comp. Metabolic Panel (14), Lipid Barba ... - Hematology leukocyte count, blood 5.3 X10E3/UL 10*3/mm3 3.4-10.8 Lab Report: CD4/CD8 Ratio Profile, Comp. Metabolic Panel (14), Lipid Barba ... - Chemistry potassium, serum 4.4 mmol/L 3.5-5.2 albumin, serum 4.6 g/dL 3.5-5.5 immature granulocytes, percentage of total cells, blood 0 % Not Estab. Lab Report: CD4/CD8 Ratio Profile, Comp. Metabolic Panel (14), Lipid Barba ... - Hematology lymphocyte count, blood, automated 2.2 X10E3/UL 10*3/mm3 0.7-3.1 hematocrit, blood 47.4 % 37.5-51.0 Lab Report: Chlamydia/GC Amplification - Microbiology Neisseria gonorrhoeae DNA probe Negative Negative Lab Report: CD4/CD8 Ratio Profile, Comp. Metabolic Panel (14), Lipid Barba ... - Chemistry sodium, serum 141 mmol/L 134-144 Preload: P[facility] 06/27/12 - Serology toxoplasma gondii antibody, IgG None-detected Lab Report: CD4/CD8 Ratio Profile, Comp. Metabolic Panel (14), Lipid Barba ... - Hematology neutrophils as percent of blood leukocytes 48 % Not Estab. Office Visit: hemroids x2 weeks/Tx 2 - Chemistry occult blood, stool (E&M) guaiac negative Lab Report: CD4/CD8 Ratio Profile, Comp. Metabolic Panel (14), Lipid Barba ... - Hematology basophils as percent of blood leukocytes 0 % Not Estab. Internal Correspondence: Pre-Visit Planning:=Ben 05/28/14@ 2:30pm CONFIRMED - Other List of providers caring for patient Mariola Boyce MD, Panfilo Dunaway MD, Yvonne Marino MD, Leonela GURROLAP, Sheldon GURROLAP, Steve Daly NP-C, Briana Gonsales MA, Dereck Hector M.A. ,, Lynn Méndez MA, Mindy Lambert MA, Nina Penaloza MA, Kerwin Serrano MA, Danny Flores MA, Katarina Martino CTA, Belkis Qiu CTA. Lab Report: CD4/CD8 Ratio Profile, Comp. Metabolic Panel (14), Lipid Barba ... - Serology HIV-1RNA, serum, by PCR, quantitative 120 {Copies}/mL Preload: [facility] 06/27/12 - Chemistry anion gap, serum 20 Lab Report: CD4/CD8 Ratio Profile, Comp. Metabolic Panel (14), Lipid Barba ... - Serology rapid plasma reagin antibody, serum Non Reactive Non Reactive Lab Report: CD4/CD8 Ratio Profile, Comp. Metabolic Panel (14), Lipid Barba ... - Chemistry CD4/CD8 ratio 1.55 0.92-3.72 carbon dioxide, venous blood 24 mmol/L 20-29 Lab Report: LIPID PANEL, HDL CHOLESTEROL, TRIGLYCERIDES, LDL-CHOLESTEROL ... - Chemistry Absolute Neutrophil count 4286 {Cells}/uL 0946-2748 Lab Report: CD4/CD8 Ratio Profile, Comp. Metabolic Panel (14), Lipid Barba ... - Chemistry triglyceride, serum, fasting 157 mg/dL 0-149 calcium, serum 9.6 mg/dL 8.7-10.2 alanine aminotransferase (SGPT), serum 27 U/L 0-44 Lab Report: CD4/CD8 Ratio Profile, Comp. Metabolic Panel (14), Lipid Barba ... - Hematology mean corpuscular hemoglobin, RBC 32.5 pg 26.6-33.0 Lab Report: CD4/CD8 Ratio Profile, Comp. Metabolic Panel (14), Lipid Barba ... - Chemistry protein, total, serum 7.4 g/dL 6.0-8.5 alkaline phosphatase, serum 119 U/L 39-117 Lab Report: CD4/CD8 Ratio Profile, Comp. Metabolic Panel (14), Lipid Barba ... - Hematology T-helper cells (CD4) as percent of blood lymphocytes 42.2 % 30.8-58.5 hemoglobin, blood 15.7 g/dL 13.0-17.7 T-suppressor cells (CD8) as percent of blood lymphocytes 27.3 % 12.0-35.5 lymphocytes as percent of blood leukocytes 42 % Not Estab. Lab Report: LIPID PANEL, HDL CHOLESTEROL, TRIGLYCERIDES, LDL-CHOLESTEROL ... - Hematology eosinophils as percent of blood leukocytes 1.1 % Lab Report: CD4/CD8 Ratio Profile, Comp. Metabolic Panel (14), Lipid Barba ... - Genetics/fertility eGFR if 129 mL/min/1.73m2 >59 Lab Report: CD4/CD8 Ratio Profile, Comp. Metabolic Panel (14), Lipid Barba ... - Hematology basophil count, absolute 0.0 x10E3/uL 0.0-0.2 Lab Report: Ct/GC VARGAS, Rectal - Basic GC Rectum Negative Negative Lab Report: CD4/CD8 Ratio Profile, Comp. Metabolic Panel (14), Lipid Barba ... - Chemistry globulin, serum 2.8 1.5-4.5 Lab Report: HCV RNA by PCR, Qn Rfx Diana - Serology hepatitis C virus, RNA, quantitative <43 IU/mL [iU]/mL Lab Report: CD4/CD8 Ratio Profile, Comp. Metabolic Panel (14), Lipid Barba ... - Chemistry Estimated Glomerular Filtration Rate (calc) 112 mL/min/1.73m2 >59 Lab Report: LIPID PANEL, HDL CHOLESTEROL, TRIGLYCERIDES, LDL-CHOLESTEROL ... - Chemistry lymphocytes, absolute 2493 CELLS/UL 10*3/uL 850-3900 Preload: Preload [facility] 06/27/12 - Serology hepatitis B surface antibody Reactive Lab Report: CD4/CD8 Ratio Profile, Comp. Metabolic Panel (14), Lipid Barba ... - Hematology eosinophils as percent of blood leukocytes 2 % Not Estab. Lab Report: CD4/CD8 Ratio Profile, Comp. Metabolic Panel (14), Lipid Barba ... - Chemistry blood glucose, random 94 mg/dL 65-99 prostate specific antigen 0.4 ng/mL 0.0-4.0 estimated glomerular filtration rate >59 mL/min/1.73 mL/min >59 Lab Report: CD4/CD8 Ratio Profile, Comp. Metabolic Panel (14), Lipid Barba ... - Hematology monocyte count, blood, automated 0.4 X10E3/UL 10*3/uL 0.1-0.9 T-helper cells (CD4) count 928 /UL uL 359-1519 platelet count 157 X10E3/UL 10*3/mm3 150-450 Encounters Date Encounter Provider Code Facility 08:16:17 CDT Ofc Vst, Est Level IV Panfilo Dunaway MD [id number] [facility] 09:18:10 CDT Ofc Vst, Est Level III Panfilo Dunaway MD [facility]-[id number] [facility] 14:21:11 CDT Ofc Vst, Est Level IV Panfilo Dunaway MD [id number] [facility] 15:21:54 [employer] Ofc Vst, Est Level IV Panfilo Dunaway MD [id number] [facility] 15:16:34 CDT Ofc Vst, Est Level IV Panfilo Dunaway MD [id number] [facility] Adult [facility] 13:52:54 RADIO ELECTRICIAN Ofc Vst, Est Level IV Panfilo Dunaway MD [id number] [facility] 14:35:40 CDT Ofc Vst, Est Level IV Panfilo Dunaway MD [id number] [facility] Adult [facility] 15:45:00 CDT Ofc Vst, Est Level IV Panfilo Dunaway MD [id number] [facility] 14:50:02 RADIO ELECTRICIAN Ofc Vst, Est Level IV Panfilo Dunaway MD [id number] [facility] 14:10:11 CDT Ofc Vst, Est Level IV Panfilo Dunaway MD [id number] [facility] 15:24:15 CDT Ofc Vst, Est Level IV Panfilo Dunaway MD [id number] [facility] Adult [facility] 14:07:24 RADIO ELECTRICIAN Ofc Vst, Est Level IV Panfilo Dunaway MD [id number] [facility] 16:04:17 CDT Ofc Vst, Est Level IV Panfilo Dunaway MD [facility]-[id number] [facility] 15:12:55 CDT Ofc Vst, Est Level III Panfilo Dunaway MD [facility]-[id number] [facility] 14:56:59 RADIO ELECTRICIAN Ofc Vst, Est Level IV Panfilo Dunaway MD [facility]-[id number] [facility] 14:32:42 CDT Ofc Vst, Est Level III Panfilo Dunaway MD [facility]-[id number] [facility] 14:04:59 CDT Ofc Vst, Est Level III Panfilo Dunaway MD [facility]-[id number] [facility] 08:56:18 CDT Ofc Vst, Est Level III Panfilo Dunaway MD [facility]-[id number] [facility] 13:58:14 CDT Ofc Vst, Est Level III Panfilo Dunaway MD [facility]-[id number] [facility] 09:13:47 RADIO ELECTRICIAN Ofc Vst, Est Level III Panfilo Dunaway MD [facility]-[id number] [facility] 14:42:13 CDT Ofc Vst, Est Level IV Panfilo Dunawya MD [facility]-[id number] [facility] 14:23:43 RADIO ELECTRICIAN Ofc Vst, Est Level IV Panfilo Dunaway MD [facility]-[id number] [facility] 16:03:37 RADIO ELECTRICIAN Ofc Vst, Est Level IV Panfilo Dunaway MD [facility]-[id number] [facility] Procedures Code Procedure Name Date Entry Date Standard Description CPT-70337 EKG - 12 Leads with Interpretation and Report 08:10:37 CDT CPT-12199 Xray - Chest - 2 Views - InHouse 15:19:00 CDT CPT-91865 Fluzone 0.5 ml (Influenza Vacc 3 years plus IM) 15:08:02 [employer]IO ELECT[employer]IAN CPT-85729 Dispensing Visit (UNLIVSTED OPHTHALMOLOGICAL SERVICE/PROCEDURE) 15:04:15 CDT CPT-56929 Est Patient Comprehensive Opt - 41648 15:25:20 CDT CPT-58601 Est Patient Intermediate [facility] [address] 15:33:01 CDT CPT-04679 Xray - Chest - PA & Lat - InHouse 14:23:14 RADIO ELECTRICIAN CPT-05540 INFLUENZA VACCINE QUADRIVALENT 3 YRS PLUS IM 14:22:37 CDT CPT-95047 Xray - Chest - PA & Lat - InHouse 14:48:56 CDT CPT-55190 INFLUENZA VACCINE QUADRIVALENT 3 YRS PLUS IM 14:03:11 CDT CPT-92621 Est Patient Intermediate [facility] [address] 15:57:07 CDT CPT-98325 Est Patient Intermediate [place] [address] 15:03:24 CDT CPT-58392 Influenza - Adult - Injection 13:59:33 RADIO ELECTRICIAN CPT-24885 Xray - Chest - PA & Lat - InHouse 16:06:46 CDT CPT-83144 Est Patient Intermediate [facility] [address] 12:30:16 CDT CPT-06533 Influenza - Adult - Injection 14:29:42 CDT CPT-J0696 Rocephin 250 mg 08:55:48 CDT CPT-Q0144 Azithromycin, oral, 1 g 08:55:48 CDT CPT-43793 Xray - Chest - PA & Lat - InHouse 14:28:14 CDT CPT-78673 Prevnar (PCV13) IM 13:54:10 CDT CPT-65212 Xray - Chest - PA & Lat - InHouse 18:10:06 [employer]IO [employer] CPT-41324 Pneumovax Vaccine 14:20:13 [employer] [facility]-98400 Influenza - Adult - Injection 16:01:37 [employer]
--- OUTSIDE RECORDS SUMMARY | 2019-01-23 12:41 | XMS REPORT | Clinical Summary ---
Author Author [facility] Address Unknown Phone Unavailable Care Team Providers Care E Commerce Project Manager Name Role Phone RosalbakarolPanfilo guy PCP Allergies [...] Not on file Results Not on fileafter 01/22/2018 Insurance Payer Benefit Subscriber ID Type Phone Address Plan / Group [facility] xxxxxxxxxxxx HMO/POS [phone] [facility] CHOICE EXCHANGE
--- OUTSIDE RECORDS SUMMARY | 2019-01-23 12:41 | XMS REPORT | Continuity of Care Document ---
Author Author [facility] Organization [facility] Address Unknown Phone Unavailable Care Team Providers Care Transport Tank Technician Name Role Phone [employer] Information [employer] [place] Unavailable Unavailable Problems Problem Status Onset Date [...] Vitamin D (Ergocalciferol) 1 capsule Orally Active 04493 UNIT Orally once a week Mare 12/15/2017 [...]
[2019-01-23 16:25] VITALS: BP 117/78
== END | disposition home or self-care (01) ==
LOC: OR 12:36
PROVIDERS: ATTEND Ophthalmology
DX: H25.12 Age-related nuclear cataract, left eye (principal); Z21 Asymptomatic human immunodeficiency virus [HIV] infection status; Z98.2 Presence of cerebrospinal fluid drainage device; G91.9 Hydrocephalus, unspecified
CPT/HCPCS: 66984; J2250; J3010; V2632